=== PATIENT | male | born 1960 | race Caucasian/White ===

== ENCOUNTER 2017-12-08 15:03 | Observation (INO) | payer OTHER ==
[2017-12-08 15:10] LABS: Glucose,Whole Blood 137 mg/dL (75-99)
[2017-12-08] MEDS ORDERED: SODIUM CHLORIDE 0.9% 1,000 ML IV STA (15:15)
--- NOTE | 2017-12-08 15:19 | ED ---
General Adult HPI - General Chief complaint: Seizure Stated complaint: Seizure Time Seen by Provider: 12/08/17 15:06 Source: patient, EMS, RN notes reviewed Mode of arrival: EMS Limitations: no limitations - History of Present Illness Initial comments: Patient is a pleasant 57-year-old male presenting to the emergency department with friend following an unresponsive episode. Friend states patient had a seizure however no seizure activity was witnessed. Patient is described as starting to eat ice cream and his eyes rolled back of his head and fell back. No obvious injury. Patient denies any pain. No seizure activity witnessed. Patient feels fine at this point however admits he does not recall the episode. Patient did have a somewhat similar episode several years ago. Patient denies any recent illness. No pain or confusion. - Related Data Allergies Allergy/AdvReac Type Severity Reaction Status Date / Time No Known Allergies Allergy Verified 12/08/17 15:15 Review of Systems ROS Statement: Those systems with pertinent positive or pertinent negative responses have been documented in the HPI. ROS Other: All systems not noted in ROS Statement are negative. Constitutional: Denies: fever Eyes: Denies: eye pain ENT: Denies: ear pain Respiratory: Denies: cough, dyspnea Cardiovascular: Denies: chest pain Endocrine: Denies: fatigue Gastrointestinal: Denies: abdominal pain Genitourinary: Denies: dysuria Musculoskeletal: Denies: back pain Skin: Denies: rash Neurological: Denies: headache, weakness, confusion Past Medical History Past Medical History: Coronary Artery Disease (CAD), Heart Failure, COPD, Hyperlipidemia, Hypertension, Myocardial Infarction ([place]), Seizure Disorder History of Any Multi-Drug Resistant Organisms: None Reported Past Surgical History: Hernia Repair Past Psychological History: No Psychological Hx Reported Smoking Status: Former smoker Past Alcohol Use History: None Reported Past Drug Use History: None Reported General Exam Limitations: no limitations General appearance: alert, in no apparent distress Head exam: Present: atraumatic, normocephalic Eye exam: Present: normal appearance, PERRL, EOMI. Absent: nystagmus ENT exam: Present: normal oropharynx Neck exam: Present: normal inspection Respiratory exam: Present: normal lung sounds bilaterally Cardiovascular Exam: Present: regular rate, normal rhythm Expanded Peripheral pulses: 2+: Radial (R), Radial (L), Dorsalis Pedis (R), Dorsalis Pedis (L) GI/Abdominal exam: Present: soft. Absent: tenderness, guarding Extremities exam: Present: normal inspection. Absent: pedal edema, calf tenderness Neurological exam: Present: alert, oriented X3, CN II-XII intact. Absent: motor sensory deficit Expanded Neurological exam: Present: protecting the airway Patient oriented to: Present: person, place, time Speech: Present: fluid speech Cranial nerves: EOM's Intact: Normal Motor strength exam: RUE: 5, LUE: 5, RLE: 5, LLE: 5 Eye Response: (4) open spontaneously Motor Response: (6) obeys commands Verbal Response: (5) oriented Psychiatric exam: Present: normal affect, normal mood Skin exam: Present: normal color Course Vital Signs 12/08/17 12/08/17 12/08/17 15:10 16:08 16:52 Temperature 98.7 F 98.0 F Pulse Rate 107 H 97 102 H Respiratory 20 18 18 Rate Blood Pressure 126/60 110/63 140/63 O2 Sat by Pulse 90 L 94 L 98 Oximetry EKG Findings - EKG Comments: EKG Findings:: Sinus tachycardia 104. [place] 172. QRS 116. QT 36. QTc 507. Left axis. Left anterior fascicular block. No acute ST change. Medical Decision Making - Medical Decision Making Patient reevaluated and resting comfortably in bed. No complaints at this time. Friend who is present now does question if there was some generalized shaking activity. Patient and friend are updated on results and plan. Case was discussed in detail with Dr. Sepulveda, who will admit for hospital call. - Lab Data Result diagrams: 12/08/17 15:15 12/08/17 15:15 Lab Results 12/08/17 12/08/17 12/08/17 Range/Units 15:08 15:15 15:15 WBC 15.6 H (3.8-10.6) k/uL RBC 4.38 (4.30-5.90) m/uL Hgb 13.6 (13.0-17.5) gm/dL Hct 40.8 (39.0-53.0) % MCV 93.2 (80.0-100.0) fL MCH 31.1 (25.0-35.0) pg MCHC 33.4 (31.0-37.0) g/dL RDW 14.0 (11.5-15.5) % Plt Count 420 (150-450) k/uL Neutrophils % 61 % Lymphocytes % 28 % Monocytes % 6 % Eosinophils % 2 % Basophils % 1 % Neutrophils # 9.5 H (1.3-7.7) k/uL Lymphocytes # 4.4 (1.0-4.8) k/uL Monocytes # 0.9 (0-1.0) k/uL Eosinophils # 0.3 (0-0.7) k/uL Basophils # 0.1 (0-0.2) k/uL PT (9.0-12.0) sec INR (<1.2) APTT (22.0-30.0) sec Sodium (137-145) mmol/L Potassium (3.5-5.1) mmol/L Chloride (98-107) mmol/L Carbon Dioxide (22-30) mmol/L Anion Gap mmol/L BUN (9-20) mg/dL Creatinine (0.66-1.25) mg/dL Est GFR (CKD-EPI)AfAm (>60 ml/min/1.73 sqM) Est GFR (CKD-EPI)NonAf (>60 ml/min/1.73 sqM) Glucose (74-99) mg/dL POC Glucose (mg/dL) 137 H (75-99) mg/dL POC Glu [employer] Shira Bustillos Calcium (8.4-10.2) mg/dL Total Bilirubin (0.2-1.3) mg/dL AST (17-59) U/L ALT (21-72) U/L Alkaline Phosphatase (38-126) U/L Total Creatine Kinase 63 (55-170) U/L CK-MB (CK-2) 0.8 (0.0-2.4) ng/mL CK-MB (CK-2) Rel Index 1.3 Troponin I <0.012 (0.000-0.034) ng/mL Total Protein (6.3-8.2) g/dL Albumin (3.5-5.0) g/dL Serum Alcohol mg/dL 12/08/17 12/08/17 Range/Units 15:15 15:15 WBC (3.8-10.6) k/uL RBC (4.30-5.90) m/uL Hgb (13.0-17.5) gm/dL Hct (39.0-53.0) % MCV (80.0-100.0) fL MCH (25.0-35.0) pg MCHC (31.0-37.0) g/dL RDW (11.5-15.5) % Plt Count (150-450) k/uL Neutrophils % % Lymphocytes % % Monocytes % % Eosinophils % % Basophils % % Neutrophils # (1.3-7.7) k/uL Lymphocytes # (1.0-4.8) k/uL Monocytes # (0-1.0) k/uL Eosinophils # (0-0.7) k/uL Basophils # (0-0.2) k/uL PT 10.0 (9.0-12.0) sec INR 1.0 (<1.2) APTT 22.2 (22.0-30.0) sec Sodium 138 (137-145) mmol/L Potassium 3.1 L (3.5-5.1) mmol/L Chloride 98 (98-107) mmol/L Carbon Dioxide 26 (22-30) mmol/L Anion Gap 14 mmol/L BUN 15 (9-20) mg/dL Creatinine 0.70 (0.66-1.25) mg/dL Est GFR (CKD-EPI)AfAm >90 (>60 ml/min/1.73 sqM) Est GFR (CKD-EPI)NonAf >90 (>60 ml/min/1.73 sqM) Glucose 125 H (74-99) mg/dL POC Glucose (mg/dL) (75-99) mg/dL POC Glu Hand [employer] Meat ID Calcium 9.3 (8.4-10.2) mg/dL Total Bilirubin 0.3 (0.2-1.3) mg/dL AST 20 (17-59) U/L ALT 30 (21-72) U/L Alkaline Phosphatase 83 (38-126) U/L Total Creatine Kinase (55-170) U/L CK-MB (CK-2) (0.0-2.4) ng/mL CK-MB (CK-2) Rel Index Troponin I (0.000-0.034) ng/mL Total Protein 6.3 (6.3-8.2) g/dL Albumin 3.9 (3.5-5.0) g/dL Serum Alcohol <10 mg/dL - Radiology Data Radiology results: report reviewed (Computed tomography scan of the brain reveals no acute abdominal mild), image reviewed (Chest x-ray shows no acute process) Disposition Clinical Impression: Unresponsive episode Disposition: ADMITTED IP TO THIS HOSP Is patient prescribed a controlled substance at d/c from ED?: No Referrals: Nonstaff,Physician [Primary Care Provider] - 1-2 days Decision Time: 17:03
[2017-12-08 15:36] LABS: Basophils # (A) 0.1 k/uL (0-0.2); Basophils % (A) 1 %; Eosinophils # (A) 0.3 k/uL (0-0.7); Eosinophils % (A) 2 %; HCT 40.8 % (39.0-53.0); HGB 13.6 gm/dL (13.0-17.5); Lymphocytes # (A) 4.4 k/uL (1.0-4.8); Lymphocytes % (A) 28 %; MCH 31.1 pg (25.0-35.0); MCHC 33.4 g/dL (31.0-37.0); MCV 93.2 fL (80.0-100.0); Mean Platelet Volume 6.8; Monocytes # (A) 0.9 k/uL (0-1.0); Monocytes % (A) 6 %; Neutrophils # (A) 9.5 k/uL (1.3-7.7); Neutrophils % (A) 61 %; Platelet Count 420 k/uL (150-450); RBC 4.38 m/uL (4.30-5.90); WBC 15.6 k/uL (3.8-10.6)
[2017-12-08 15:42] LABS: ALT 30 U/L (21-72); AST 20 U/L (17-59); Albumin 3.9 g/dL (3.5-5.0); Alcohol <10 mg/dL; Alkaline Phosphatase 83 U/L (38-126); Anion Gap 14 mmol/L; Blood Urea Nitrogen 15 mg/dL (9-20); Calcium 9.3 mg/dL (8.4-10.2); Carbon Dioxide 26 mmol/L (22-30); Chloride 98 mmol/L (98-107); Glucose 125 mg/dL (74-99); Partial Thromboplastin Time 22.2 sec (22.0-30.0); Potassium 3.1 mmol/L (3.5-5.1); Sodium 138 mmol/L (137-145); Total Bilirubin 0.3 mg/dL (0.2-1.3); Total Protein 6.3 g/dL (6.3-8.2)
[2017-12-08 15:59] LABS: Creatine Kinase 63 U/L (55-170)
[2017-12-08 16:09] VITALS: RESP 18
[2017-12-08 16:11] LABS: Creatine Kinase MB 0.8 ng/mL (0.0-2.4); Troponin I <0.012 ng/mL (0.000-0.034)
--- NOTE | 2017-12-08 16:26 | CT ---
EXAMINATION TYPE: CT brain wo con DATE OF EXAM: 12/08/2017 COMPARISON: HISTORY: Syncope CT DLP: 1079 mGycm Automated exposure control for dose reduction was used. FINDINGS: There are cerebral vascular calcifications. No hemorrhage or hydrocephalus. No mass effect. Brain den sity is normal. Calvarium is intact. Paranasal sinuses and mastoid air cells are normal. The orbits s how a symmetric appearance. IMPRESSION: NO ACUTE ABNORMALITY.
--- NOTE | 2017-12-08 16:29 | XR ---
EXAMINATION TYPE: XR chest 2V DATE OF EXAM: 12/08/2017 COMPARISON: NONE HISTORY: Syncope and seizure TECHNIQUE: Frontal and lateral views of the chest are obtained. FINDINGS: There is no focal air space opacity, pleural effusion, or pneumothorax seen. The cardiac silhouette size is within normal limits. The osseous structures are intact. There are overlying car diac leads. IMPRESSION: No acute cardiopulmonary process.
[2017-12-08] MEDS ORDERED: POTASSIUM CHLORIDE ER 20 MEQ TAB.ER PO STA (16:44)
[2017-12-08] MEDS ORDERED: NALOXONE 0.4 MG/ML 1 ML VIAL IV PRN (17:03)
[2017-12-08 17:12] LABS: Appearance,Urine Clear (Clear); Bilirubin,Urine Negative (Negative); Blood,Urine Negative (Negative); Color,Urine Yellow; Glucose,Urine (UA) Negative (Negative); Ketones,Urine Negative (Negative); Leukocyte Esterase,Urine Negative (Negative); Nitrite,Urine Negative (Negative); PH, Urine 6.5 (5.0-8.0); Protein,Urine Trace (Negative); Specific Gravity,Urine 1.016 (1.001-1.035); Urobilinogen,Urine <2.0 mg/dL (<2.0)
[2017-12-08 17:23] LABS: Amphetamine Screen,Urine Not Detected (NotDetected); Barbiturate Screen,Urine Not Detected (NotDetected); Benzodiazepines Screen,Urine Not Detected (NotDetected); Cocaine Screen,Urine Not Detected (NotDetected); Methadone Screen, Urine Not Detected (NotDetected); Opiate Screen,Urine Not Detected (NotDetected); Oxycodone Screen, Urine Not Detected (NotDetected); Phencyclidine Screen,Urine Not Detected (NotDetected); Tricyclic Antidepressant,Urine Not Detected (NotDetected); Urn Cannabinoid Scrn Not Detected (NotDetected)
[2017-12-08] MEDS ORDERED: ACETAMINOPHEN TAB 325 MG TAB PO PRN (17:29)
--- NOTE | 2017-12-08 17:39 | P.HPIM ---
History of Present Illness H&P Date: 12/08/17 Chief Complaint: Syncope 57-year-old male presented to the emergency department following an unresponsive episode. Patient doesn't recall the event. He was buying a Sundae at an ice cream place when he started feeling dizzy and lightheaded and then all of a sudden his eyes rolled back and he fell backwards. He didn't hit his head on the bench. He was not sure how long he passed out for. He felt clammy and diaphoretic. He denied having any nausea or vomiting. No blurry or double vision. No focal weakness or numbness. No slurred speech. Patient has history of COPD and he continues to smoke occasionally and he stated that the heat and humidity have been taking a toll on him. There was questionable shaking during the event but his stated that it didn't look like his typical seizure. Review of Systems 12 point review of system performed, negative except HPI Past Medical History Past Medical History: Coronary Artery Disease (CAD), Heart Failure, COPD, Hyperlipidemia, Hypertension, Myocardial Infarction (PR), Seizure Disorder History of Any Multi-Drug Resistant Organisms: None Reported Past Surgical History: Hernia Repair Past Psychological History: No Psychological Hx Reported Smoking Status: Former smoker Past Alcohol Use History: None Reported Past Drug Use History: None Reported Medications and Allergies Home Medications Medication Instructions Recorded Confirmed Type Aspirin [Adult Low Dose Aspirin EC] 81 mg PO DAILY 12/08/17 12/08/17 History Atorvastatin [Lipitor] 20 mg PO HS 12/08/17 12/08/17 History Cholecalciferol [Vitamin D3] 1,000 unit PO DAILY 12/08/17 12/08/17 History Hydrochlorothiazide [Hydrodiuril] 25 mg PO DAILY 12/08/17 12/08/17 History Lisinopril 40 mg PO DAILY 12/08/17 12/08/17 History Potassium Chloride [Klor-Con 10] 10 meq PO DAILY 12/08/17 12/08/17 History Vit C/E/Zn/Coppr/Lutein/Zeaxan 1 cap PO DAILY 12/08/17 12/08/17 History [Preservision Areds 2 Softgel] levETIRAcetam [Keppra] 500 mg PO Q12HR 12/08/17 12/08/17 History Allergies Allergy/AdvReac Type Severity Reaction Status Date / Time No Known Allergies Allergy Verified 12/08/17 17:20 Physical Exam Vitals: Vital Signs Temp Pulse Resp BP Pulse Ox 12/08/17 16:52 98.0 F 102 H 18 140/63 98 12/08/17 16:08 97 18 110/63 94 L 12/08/17 15:10 98.7 F 107 H 20 126/60 90 L Intake and Output 12/08/17 12/08/17 12/08/17 06:59 14:59 22:59 Other: Weight 126.552 kg Constitutional: No acute distress, conversant, pleasant Eyes:Anicteric sclerae, moist conjunctiva, no lid-lag, PERRLA, ENMT: Oropharynx clear, no erythema, exudates Neck: Supple, FROM, no masses, or JVD, No carotid bruits, No thyromegaly Lungs: Clear to auscultation, Clear to percussion, Normal respiratory effort, no accessory muscle use Cardiovascular: Tachycardic, regular, No murmurs, gallops, or rubs, No peripheral edema Abdominal: Soft, Nontender, no guarding, rebound or rigidity, Normoactive bowel sounds, No hepatomegaly, No splenomegaly, No palpable mass Skin: Normal temperature, tone, texture, turgor, no induration, No subcutaneous nodules, No rash, lesions, No ulcers Extremities: No digital cyanosis, No clubbing, Pedal pulses intact and symmetrical, Radial pulses intact and symmetrical, No calf tenderness Psychiatric: Alert and oriented to person, place and time, appropriate affect, intact judgement Neuro: Muscles Strength 5/5 in all 4 extremities, Sensation to light touch grossly present throughout, Cranial nerves II-XII grossly intact, no focal sensory deficits Results CBC & Chem 7: 12/08/17 15:15 12/08/17 15:15 Labs: Abnormal Lab Results - Last 24 Hours (Table) 12/08/17 12/08/17 12/08/17 Range/Units 15:08 15:15 15:15 WBC 15.6 H (3.8-10.6) k/uL Neutrophils # 9.5 H (1.3-7.7) k/uL Potassium 3.1 L (3.5-5.1) mmol/L Glucose 125 H (74-99) mg/dL POC Glucose (mg/dL) 137 H (75-99) mg/dL Urine Protein (Negative) 12/08/17 Range/Units 16:11 WBC (3.8-10.6) k/uL Neutrophils # (1.3-7.7) k/uL Potassium (3.5-5.1) mmol/L Glucose (74-99) mg/dL POC Glucose (mg/dL) (75-99) mg/dL Urine Protein Trace H (Negative) Assessment and Plan Plan: Syncope/Hx of coronary Artery Disease (CAD) s/p 3 MIs/Hx of seizure Disorder: Likely vasovagal, rule out ACS versus seizure Admit to observation Telemetry Cycle troponins Cardiology and neurology consultations 2-D echo COPD, Hyperlipidemia, Hypertension: All stable Resume home meds
[2017-12-08 20:24] VITALS: BMI 43.7
--- NOTE | 2017-12-08 21:07 | P.CNNES ---
History of Present Illness Consult date: 12/08/17 Reason for Consult: Patient admitted with syncope vs. seizure event today. History of Present Illness: This patient is a 57-year-old right-handed white male who was in his usual state of health earlier today. The patient was at a campground and was with his and was taking a break to have a ice cream Saturday. Apparently she had help get his ice cream together and was coming back to the table where they were sitting and the patient had what she describes as a possible seizure. Apparently he fell backwards and struck the back of his head. He was having some shaking when he was on the ground. The had witnessed the entire event and was concerned that he had a seizure. Patient was feeling dizzy and lightheaded just prior to this event. The noted that his eyes rolled back and he fell backwards and was unresponsive for several minutes. He did feel clammy and apparently noted that he was sweating somewhat profusely. The patient does have a history of underlying seizure disorder for the past 2-1/2 years. His first seizure was in June 2015. He has been on anticonvulsant therapy and takes Keppra 500 mg twice a day. He is not aware of when his last Keppra blood level was checked. The patient states that he was feeling warm just prior to this syncopal episode. Once again it is not clear if this was a syncope versus seizure event. He denied any loss of bowel or bladder during the event. It was extensively warm outside when this episode occurred today. He was taught in by EMS to the emergency room for further evaluation. His states that she was concerned he may have had a seizure as she is seen this previously. The patient was brought into the emergency room where he was further evaluated at [facility] ER. He was seen in the ER by Dr. Coyne. He was sent for a computed tomography scan of the brain today which was reported to show no acute abnormality. Patient was subsequent admitted to Hospital. Patient is unaware of his last Keppra blood level. He follows with her neurologist as well as a primary care physician at in [place]. We will obtain a Keppra blood level as well as a routine EEG tomorrow for further evaluation. His overall prognosis remains guarded. Patient is aware of the [place] driving law and is aware he cannot drive in the state of [place] for a period of 6 months following his last syncope and/ or seizure event. He is now been advised he cannot drive now for 6 months. Patient is well aware of this from his previous seizure that occurred in 2016. Patient is now admitted and neurology has been consulted for further evaluation and recommendations. Review of Systems Constitutional: Denies chills, Denies fever Eyes: denies blurred vision, denies pain Ears, nose, mouth and throat: Denies headache, Denies sore throat Cardiovascular: Denies chest pain, Denies shortness of breath Respiratory: Denies cough Gastrointestinal: Denies abdominal pain, Denies diarrhea, Denies nausea, Denies vomiting Musculoskeletal: Denies myalgias Integumentary: Denies pruritus, Denies rash Neurological: Reports change in mentation, Reports confusion, Reports convulsions, Reports seizures, Reports syncope, Denies numbness, Denies weakness Psychiatric: Denies anxiety, Denies depression Endocrine: Denies fatigue, Denies weight change Past Medical History Past Medical History: Coronary Artery Disease (CAD), Heart Failure, COPD, Hyperlipidemia, Hypertension, Myocardial Infarction ([place]), Seizure Disorder History of Any Multi-Drug Resistant Organisms: None Reported Past Surgical History: Hernia Repair Past Psychological History: No Psychological Hx Reported Smoking Status: Former smoker Past Alcohol Use History: None Reported Past Drug Use History: None Reported - Past Family History Mother Family Medical History: Congestive Heart Failure (CHF), Diabetes Mellitus, Renal Disease Additional Family Medical History / Comment(s): at age 56 Father Family Medical History: Myocardial Infarction (MA) Additional Family Medical History / Comment(s): at age 46 massive MA Medications and Allergies Home Medications Medication Instructions Recorded Confirmed Type Aspirin [Adult Low Dose Aspirin EC] 81 mg PO DAILY 12/08/17 12/08/17 History Atorvastatin [Lipitor] 20 mg PO HS 12/08/17 12/08/17 History Cholecalciferol [Vitamin D3] 1,000 unit PO DAILY 12/08/17 12/08/17 History Hydrochlorothiazide [Hydrodiuril] 25 mg PO DAILY 12/08/17 12/08/17 History Lisinopril 40 mg PO DAILY 12/08/17 12/08/17 History Potassium Chloride [Klor-Con 10] 10 meq PO DAILY 12/08/17 12/08/17 History Vit C/E/Zn/Coppr/Lutein/Zeaxan 1 cap PO DAILY 12/08/17 12/08/17 History [Preservision Areds 2 Softgel] levETIRAcetam [Keppra] 500 mg PO Q12HR 12/08/17 12/08/17 History Allergies Allergy/AdvReac Type Severity Reaction Status Date / Time No Known Allergies Allergy Verified 12/08/17 17:20 Physical Examination - Vital Signs Vital Signs: Vital Signs Temp Pulse Resp BP Pulse Ox 12/08/17 19:33 98.0 F 98 18 134/78 94 L 12/08/17 16:52 98.0 F 102 H 18 140/63 98 12/08/17 16:08 97 18 110/63 94 L 12/08/17 15:10 98.7 F 107 H 20 126/60 90 L Intake and Output 12/08/17 12/08/17 12/08/17 06:59 14:59 22:59 Other: Weight 126.552 kg - Constitutional General appearance: average body habitus, cooperative - EENT EENT: PERRL, mucous membranes moist - Respiratory Respiratory: lungs clear, normal breath sounds - Cardiovascular Cardiovascular: regular rate, normal S1, normal S2 Extremities: no peripheral edema bilaterally - Gastrointestinal Gastrointestinal: normoactive bowel sounds - Integumentary Integumentary: normal - Neurologic Cranial nerve examination: PERRL, EOMI, V1/V2/V3 grossly intact, face symmetric , tongue midline, intact gag reflex, intact corneal reflex, normal palatal elevation Speech examination: intact Sensorimotor examination: intact Motor examination - right side: 4/5: biceps, triceps, wrist flexion, wrist extension, incident response specialist, hip flexors, knee extensors, dorsiflexion, toe extension (EHL) , plantarflexion Motor examination - left side: 4/5: biceps, triceps, wrist flexion, wrist extension, incident response specialist, hip flexors, knee extensors, dorsiflexion, toe extension (EHL) , plantarflexion Detailed sensory examination: intact Reflex and gait examination: intact Reflexes: 1+: ankle, bicep, knee, tricep - Musculoskeletal Musculoskeletal: no pain - Psychiatric Psychiatric: mood/affect appropriate, cooperative Results - Laboratory Findings CBC and BMP: 12/08/17 15:15 12/08/17 15:15 Abnormal Lab Findings: Abnormal Labs 07/12/08/17 12/08/17 15:08 15:15 15:15 WBC 15.6 H Neutrophils # 9.5 H Potassium 3.1 L Glucose 125 H POC Glucose (mg/dL) 137 H Urine Protein 12/08/17 16:11 WBC Neutrophils # Potassium Glucose POC Glucose (mg/dL) Urine Protein Trace H Assessment and Plan (1) Seizure disorder Current Visit: Yes Status: Acute Code(s): G40.909 - EPILEPSY, UNSP, NOT INTRACTABLE, WITHOUT STATUS EPILEPTICUS SNOMED Code(s): 916617948 (2) Vasovagal syncope Current Visit: Yes Status: Acute Code(s): R55 - SYNCOPE AND COLLAPSE SNOMED Code(s): 268967567 (3) Anxiety disorder Current Visit: Yes Status: Acute Code(s): F41.9 - ANXIETY DISORDER, UNSPECIFIED SNOMED Code(s): 481761995 (4) Unresponsive episode Current Visit: Yes Status: Acute Code(s): R41.89 - OTH SYMPTOMS AND SIGNS W COGNITIVE FUNCTIONS AND AWARENESS SNOMED Code(s): 230523401 Plan: This patient is a 57-year-old male who was at a trailer park today and was having some ice cream with his when he apparently had a passing out spell. It is unclear whether this was a syncopal episode and or a seizure. Patient has history of underlying seizure disorder for which she takes Keppra 500 mg twice a day. According to the he has been seizure-free on this medication over the last year. He does follow with a neurologist at in [place]. He was brought into the emergency room and was evaluated by Dr. Coyne. Computed tomography scan of the brain was reported negative for any acute changes. He was admitted to Hospital. Neurological examination at this time is nonfocal. We will obtain a Keppra blood level for this patient tomorrow morning and adjust his dose if necessary. We will also obtain a routine EEG for further evaluation. He was advised of the [employer] driving law with states he cannot drive for. To 6 months following his last syncopal episode and/or seizure. Patient is aware of this from his previous seizure that occurred in 2016. We will continue with seizure precautions and close monitoring for this patient during this admission. His overall prognosis at this time remains very guarded. Time with Patient: Greater than 30
[2017-12-08] MEDS: levETIRAcetam 500 MG TAB PO SCH (21:44)
[2017-12-08] MEDS: ATORVASTATIN 20 MG TAB PO SCH (21:44)
[2017-12-08] MEDS: SODIUM CHLORIDE 0.9% 1,000 ML IV SCH (21:45)
[2017-12-09 03:21] LABS: Basophils % (A) 0 %; Eosinophils # (A) 0.2 k/uL (0-0.7); Eosinophils % (A) 1 %; HCT 38.2 % (39.0-53.0); HGB 12.9 gm/dL (13.0-17.5); Lymphocytes # (A) 2.1 k/uL (1.0-4.8); Lymphocytes % (A) 15 %; MCH 30.8 pg (25.0-35.0); MCHC 33.7 g/dL (31.0-37.0); MCV 91.6 fL (80.0-100.0); Monocytes # (A) 0.7 k/uL (0-1.0); Monocytes % (A) 5 %; Neutrophils % (A) 78 %; Platelet Count 317 k/uL (150-450); RBC 4.17 m/uL (4.30-5.90); RDW 13.8 % (11.5-15.5); WBC 14.1 k/uL (3.8-10.6)
[2017-12-09 03:48] LABS: Anion Gap 8 mmol/L; Blood Urea Nitrogen 15 mg/dL (9-20); Calcium 9.2 mg/dL (8.4-10.2); Carbon Dioxide 33 mmol/L (22-30); Chloride 97 mmol/L (98-107); Glucose 98 mg/dL (74-99); Phosphorus 3.2 mg/dL (2.5-4.5); Potassium 3.4 mmol/L (3.5-5.1); Sodium 138 mmol/L (137-145)
[2017-12-09] MEDS ORDERED: POTASSIUM CHLORIDE ER 20 MEQ TAB.ER PO STA (07:22)
[2017-12-09] MEDS: LISINOPRIL 20 MG TAB PO SCH (08:34)
[2017-12-09] MEDS: ASPIRIN 81 MG PO SCH (08:34)
[2017-12-09] MEDS: CHOLECALCIFEROL 1,000 UNIT TAB PO SCH (08:34)
[2017-12-09] MEDS: levETIRAcetam 500 MG TAB PO SCH ×2 (08:34→21:22)
[2017-12-09] MEDS: POTASSIUM CHLORIDE ER 10 MEQ TAB.ER.PRT PO SCH (08:34)
--- NOTE | 2017-12-09 10:50 | P.PN ---
Subjective Progress Note Date: 12/09/17 Principal diagnosis: Syncope Uncomfortable because he hasn't slept last night. No further dizziness or syncope. Objective - Vital Signs Vital signs: Vital Signs Temp 97.7 F 12/09/17 08:00 Pulse 85 12/09/17 08:00 Resp 18 12/09/17 04:00 BP 113/74 12/09/17 08:00 Pulse Ox 95 12/09/17 09:24 Intake & Output 12/08/17 12/09/17 12/09/17 18:59 06:59 18:59 Intake Total 900 360 Balance 900 360 Weight 126.552 kg 105.9 kg Intake: IV 900 Sodium Chloride 0.9% 1, 900 000 ml @ 100 mls/hr IV . Q10H [facility] [place] Rx#:[id number] Oral 360 Other: Voiding Method Toilet - Exam Constitutional: No acute distress, conversant, pleasant Eyes:Anicteric sclerae, moist conjunctiva, no lid-lag, PERRLA, ENMT: Oropharynx clear, no erythema, exudates Neck: Supple, FROM, no masses, or JVD, No carotid bruits, No thyromegaly Lungs: Clear to auscultation, Clear to percussion, Normal respiratory effort, no accessory muscle use Cardiovascular: Heart regular in rate and rhythm, No murmurs, gallops, or rubs, No peripheral edema Abdominal: Soft, Nontender, no guarding, rebound or rigidity, Normoactive bowel sounds, No hepatomegaly, No splenomegaly, No palpable mass Skin: Normal temperature, tone, texture, turgor, no induration, No subcutaneous nodules, No rash, lesions, No ulcers Extremities: No digital cyanosis, No clubbing, Pedal pulses intact and symmetrical, Radial pulses intact and symmetrical, No calf tenderness Psychiatric: Alert and oriented to person, place and time, appropriate affect, intact judgement Neuro: Muscles Strength 5/5 in all 4 extremities, Sensation to light touch grossly present throughout, Cranial nerves II-XII grossly intact, no focal sensory deficits - Labs CBC & Chem 7: 12/09/17 03:14 12/09/17 03:14 Labs: Abnormal Lab Results - Last 24 Hours (Table) 12/08/17 12/08/17 12/08/17 Range/Units 15:08 15:15 15:15 WBC 15.6 H (3.8-10.6) k/uL RBC (4.30-5.90) m/uL Hgb (13.0-17.5) gm/dL Hct (39.0-53.0) % Neutrophils # 9.5 H (1.3-7.7) k/uL Potassium 3.1 L (3.5-5.1) mmol/L Chloride (98-107) mmol/L Carbon Dioxide (22-30) mmol/L Glucose 125 H (74-99) mg/dL POC Glucose (mg/dL) 137 H (75-99) mg/dL Urine Protein (Negative) 12/08/17 12/09/17 12/09/17 Range/Units 16:11 03:14 03:14 WBC 14.1 H (3.8-10.6) k/uL RBC 4.17 L (4.30-5.90) m/uL Hgb 12.9 L (13.0-17.5) gm/dL Hct 38.2 L (39.0-53.0) % Neutrophils # 11.0 H (1.3-7.7) k/uL Potassium 3.4 L (3.5-5.1) mmol/L Chloride 97 L (98-107) mmol/L Carbon Dioxide 33 H (22-30) mmol/L Glucose (74-99) mg/dL POC Glucose (mg/dL) (75-99) mg/dL Urine Protein Trace H (Negative) Assessment and Plan Plan: Syncope/Hx of coronary Artery Disease (CAD) s/p 3 MIs/Hx of seizure Disorder: Likely vasovagal, rule out ACS versus seizure Continue on telemetry Troponins negative Cardiology and neurology consultations Keppra level and EEG 2-D echo COPD, Hyperlipidemia, Hypertension: All stable Resume home meds
--- NOTE | 2017-12-09 13:13 | ECHOF ---
Referral Reason:syncope MEASUREMENTS -------- HEIGHT: 170.2 cm WEIGHT: 105.7 kg BP: 134/78 IVSd: 0.9 cm (0.6 - 1.1) LVIDd: 4.2 cm (3.9 - 5.3) LVPWd: 1.0 cm (0.6 - 1.1) IVSs: 1.2 cm LVIDs: 2.0 cm LVPWs: 1.1 cm RVIDd: 2.2 cm (< 3.3) LAESV Index (A-L): 29.16 ml/m Ao Diam: 3.5 cm (2.0 - 3.7) LA Diam: 3.9 cm (2.7 - 3.8) AV Cusp: 2.1 cm (1.5 - 2.6) MV E Ajit: 0.98 m/s MV DecT: 213 ms MV A Ajit: 0.83 m/s MV E/A Ratio: 1.18 RAP: 5.00 mmHg RVSP: 16.30 mmHg FINDINGS -------- Sinus rhythm. This was a technically adequate study. The left ventricular size is normal. Left ventricular wall thickness is normal. Overall left vent ricular systolic function is low-normal with, an EF between 50 - 55 %. The right ventricle is normal in size and function. LA is midly dilated 29-33ml/m2. The right atrium is normal in size. There is mild aortic valve sclerosis. There is no evidence of aortic regurgitation. There is no e vidence of aortic stenosis. The mitral valve leaflets are mildly thickened. There is trace to mild mitral regurgitation. Trace tricuspid regurgitation present. Right ventricular systolic pressure is normal at < 35 mmHg. There is no evidence of pulmonary hypertension. The pulmonic valve was not well visualized. The aortic root size is normal. Normal inferior vena cava with normal inspiratory collapse consistent with estimated right atrial pre ssure of 5 mmHg. There is no pericardial effusion. CONCLUSIONS -------- 1. Sinus rhythm. 2. This was a technically adequate study. 3. The left ventricular size is normal. 4. Left ventricular wall thickness is normal. 5. Overall left ventricular systolic function is low-normal with, an EF between 50 - 55 %. 6. LA is midly dilated 29-33ml/m2. 7. There is mild aortic valve sclerosis. 8. The mitral valve leaflets are mildly thickened. 9. There is trace to mild mitral regurgitation. 10. Trace tricuspid regurgitation present. 11. Right ventricular systolic pressure is normal at < 35 mmHg. 12. There is no evidence of pulmonary hypertension. 13. The pulmonic valve was not well visualized. 14. The aortic root size is normal. 15. There is no pericardial effusion. AMPHIBIAN CREWMEMBER: Terell Abbott RDCS
--- NOTE | 2017-12-09 13:51 | P.CRDCN ---
History of Present Illness Consult date: 12/09/17 Requesting physician: Vickie Cruz Reason for Consult (text): syncope vs seizure Chief complaint: syncope, possible seizure History of present illness: This a pleasant 57-year-old gentleman who lives in [facility] and follows with Dr. Levin out of [facility], previously followed with Dr. Posey. He has a history of COPD, former smoker, seizure disorder, hyperlipidemia , hypertension, significant family history for premature CAD history father at 46 from an CA and his mom was 56, was told previously based on cardiac testing that he had previous MIs 2 or 3. Denies ever having cardiac catheterization. He is currently staying at [facility] while his house is being remodeled. Apparently yesterday he sat down to eat ice cream with his and lost consciousness. Apparently the patient did have some shaking of his arms and legs but apparently was not his typical presentation of his seizures. In speaking with the patient, he feels that this was a seizure as he's been under a lot of stress in his first seizure was stress related. On admission CT of the brain was negative, chest x-ray showed no acute process and EKG showed no significant ST-T wave abnormalities. Laboratory values showed a white blood cell count of 15,600, potassium of 3.1, BUN 15 and creatinine 0.7 and troponins have been less than 0.0123. This morning his white count is 14,100 and potassium is 3.4. He denies any dizziness , lightheadedness, palpitations, chest discomfort, edema or further syncopal episodes. He does complain of shortness of breath especially and heat and humidity due to his COPD. Past Medical History Past Medical History: Coronary Artery Disease (CAD), Heart Failure, COPD, Hyperlipidemia, Hypertension, Myocardial Infarction (CA), Seizure Disorder Last Myocardial Infarction Date:: 2007 History of Any Multi-Drug Resistant Organisms: None Reported Past Surgical History: Hernia Repair Past Anesthesia/Blood Transfusion Reactions: No Reported Reaction Past Psychological History: No Psychological Hx Reported Smoking Status: Former smoker Past Alcohol Use History: None Reported Past Drug Use History: None Reported - Past Family History Mother Family Medical History: Congestive Heart Failure (CHF), Diabetes Mellitus, Renal Disease Additional Family Medical History / Comment(s): at age 56 Father Family Medical History: Myocardial Infarction (CA) Additional Family Medical History / Comment(s): at age 46 massive CA Medications and Allergies Home Medications Medication Instructions Recorded Confirmed Type Aspirin [Adult Low Dose Aspirin EC] 81 mg PO DAILY 12/08/17 12/08/17 History Atorvastatin [Lipitor] 20 mg PO HS 12/08/17 12/08/17 History Cholecalciferol [Vitamin D3] 1,000 unit PO DAILY 12/08/17 12/08/17 History Hydrochlorothiazide [Hydrodiuril] 25 mg PO DAILY 12/08/17 12/08/17 History Lisinopril 40 mg PO DAILY 12/08/17 12/08/17 History Potassium Chloride [Klor-Con 10] 10 meq PO DAILY 12/08/17 12/08/17 History Vit C/E/Zn/Coppr/Lutein/Zeaxan 1 cap PO DAILY 12/08/17 12/08/17 History [Preservision Areds 2 Softgel] levETIRAcetam [Keppra] 500 mg PO Q12HR 12/08/17 12/08/17 History Allergies Allergy/AdvReac Type Severity Reaction Status Date / Time No Known Allergies Allergy Verified 12/08/17 17:20 Physical Exam Vitals: Vital Signs Temp Pulse Pulse Resp BP BP Pulse Ox 12/09/17 09:24 95 12/09/17 08:00 97.7 F 85 113/74 94 L 12/09/17 04:00 98.1 F 80 18 134/78 97 12/09/17 00:00 98.3 F 88 18 119/73 97 12/08/17 20:00 85 18 12/08/17 19:33 98.0 F 98 18 134/78 94 L 12/08/17 17:44 97.9 F 85 18 122/74 98 12/08/17 16:52 98.0 F 102 H 18 140/63 98 12/08/17 16:08 97 18 110/63 94 L 12/08/17 15:10 98.7 F 107 H 20 126/60 90 L Intake and Output 12/08/17 12/09/17 12/09/17 22:59 06:59 14:59 Intake Total 900 360 Balance 900 360 Intake: IV 900 Sodium Chloride 0.9% 1, 900 000 ml @ 100 mls/hr IV . Q10H [facility] Rx#:[id number] Oral 360 Other: Voiding Method Toilet Weight 126.552 kg 105.9 kg PHYSICAL EXAMINATION: HEENT: Head is atraumatic, normocephalic. Pupils equal, round. Neck is supple. There is no elevated jugular venous pressure. No bruit noted. HEART EXAMINATION: Heart sounds regular, S1 and S2 normal. No murmur or gallop heard. CHEST EXAMINATION: Lungs reveal diminished air entry bilaterally. No chest wall tenderness is noted on palpation or with deep breathing. ABDOMEN: Soft, obese, nontender. Bowel sounds are heard. No organomegaly noted. EXTREMITIES: 2+ peripheral pulses with no evidence of peripheral edema and no calf tenderness noted. NEUROLOGIC patient is awake, alert and oriented x3. . Results 12/09/17 03:14 12/09/17 03:14 Cardiac Enzymes 12/08/17 12/08/17 12/08/17 Range/Units 15:15 15:15 20:50 AST 20 (17-59) U/L CK-MB (CK-2) 0.8 (0.0-2.4) ng/mL Troponin I <0.012 <0.012 (0.000-0.034) ng/mL 12/09/17 Range/Units 03:14 AST (17-59) U/L CK-MB (CK-2) (0.0-2.4) ng/mL Troponin I <0.012 (0.000-0.034) ng/mL Coagulation 12/08/17 Range/Units 15:15 PT 10.0 (9.0-12.0) sec APTT 22.2 (22.0-30.0) sec CBC 12/08/17 12/09/17 Range/Units 15:15 03:14 WBC 15.6 H 14.1 H (3.8-10.6) k/uL RBC 4.38 4.17 L (4.30-5.90) m/uL Hgb 13.6 12.9 L (13.0-17.5) gm/dL Hct 40.8 38.2 L (39.0-53.0) % Plt Count 420 317 (150-450) k/uL Comprehensive Metabolic Panel 12/08/17 12/09/17 Range/Units 15:15 03:14 Sodium 138 138 (137-145) mmol/L Potassium 3.1 L 3.4 L (3.5-5.1) mmol/L Chloride 98 97 L (98-107) mmol/L Carbon Dioxide 26 33 H (22-30) mmol/L BUN 15 15 (9-20) mg/dL Creatinine 0.70 0.70 (0.66-1.25) mg/dL Glucose 125 H 98 (74-99) mg/dL Calcium 9.3 9.2 (8.4-10.2) mg/dL AST 20 (17-59) U/L ALT 30 (21-72) U/L Alkaline Phosphatase 83 (38-126) U/L Total Protein 6.3 (6.3-8.2) g/dL Albumin 3.9 (3.5-5.0) g/dL Current Medications Generic Name Dose Route Start Last Admin Trade Name Freq PRN Reason Stop Dose Admin Acetaminophen 650 mg 12/08/17 17:29 Tylenol Tab PO Q6HR PRN Mild Pain or Fever > 100.5 Aspirin 81 mg 12/09/17 09:00 12/09/17 08:34 Aspirin PO 81 mg DAILY JANET Administration Atorvastatin Calcium 20 mg 12/08/17 21:00 12/08/17 21:44 Lipitor PO 20 mg HS JANET Administration Cholecalciferol 1,000 unit 12/09/17 09:00 12/09/17 08:34 Vitamin D3 PO 1,000 unit DAILY JANET Administration Sodium Chloride 1,000 mls @ 100 mls/hr 12/08/17 17:15 12/08/17 21:45 Saline 0.9% IV 100 mls/hr .Q10H JANET Administration Levetiracetam 500 mg 12/08/17 21:00 12/09/17 08:34 Keppra PO 500 mg Q12HR JANET Administration Lisinopril 40 mg 12/09/17 09:00 12/09/17 08:34 Zestril PO 40 mg DAILY JANET Administration Naloxone HCl 0.2 mg 12/08/17 17:03 Narcan IV Q2M PRN Opioid Reversal Potassium Chloride 10 meq 12/09/17 09:00 12/09/17 08:34 K-Dur 10 PO 10 meq DAILY JANET Administration Intake and Output 12/08/17 12/09/17 12/09/17 22:59 06:59 14:59 Intake Total 900 360 Balance 900 360 Intake: IV 900 Sodium Chloride 0.9% 1, 900 000 ml @ 100 mls/hr IV . Q10H [facility] Rx#:[id number] Oral 360 Other: Voiding Method Toilet Weight 126.552 kg 105.9 kg 12/09/17 03:14 12/09/17 03:14 Assessment and Plan Assessment: #1 syncope, likely vasovagal however patient does have a history of seizures as well as history of possible MIs in the past #2 hypertension #3 hyperlipidemia #4 COPD #5 seizure disorder Plan: From cardiology perspective, we'll review 2-D echo with Doppler. Replace potassium. We will observe patient for arrhythmias. Further recommendations to follow. LEGAL RECORDS MANAGER note has been reviewed, I agree with a documented findings and plan of care. Patient was seen and examined.
[2017-12-09] MEDS: SODIUM CHLORIDE 0.9% 1,000 ML IV SCH (21:21)
[2017-12-09] MEDS: ATORVASTATIN 20 MG TAB PO SCH (21:22)
--- NOTE | 2017-12-09 21:43 | EEG ---
ELECTROENCEPHALOGRAM REPORT DATE OF EE12/09/2017. REFERRING PHYSICIAN: Dr. Sepulveda. CONSULTING/INTERPRETING PHYSICIAN: Dr. Rashel Pop MD. ELECTROENCEPHALOGRAPHIC EXAMINATION: INDICATION FOR EXAMINATION: This patient is a 57-year-old male being evaluated for syncope versus seizure. Patient with episode of unresponsiveness and recent fall. AGE: [age]. EEG FINDINGS: A routine 21 channel awake digital EEG recording was accomplished utilizing the 10-20 international system with bipolar and referential montages. The background activity in the most alert resting state consists of a low to medium amplitude, fairly well- developed well sustained 7-8 Hz activity over the posterior head regions. This posterior rhythm attenuates to eye opening. There is a small amount of low amplitude 18-20 Hz beta activity seen maximally over the anterior head regions. Muscle and movement artifact was observed on a few occasions during the tracing. Hyperventilation was not performed. Photic stimulation at flash frequencies of 2-30 Hz produced a minimal occipital driving response. Muscle and movement artifact was observed on several occasions throughout the tracing. No epileptiform discharges were seen. IMPRESSION: This EEG is within normal limits for the patient's age. The EEG failed to reveal any focal, lateralized, or epileptiform abnormalities. Clinical correlation is recommended. MMODL / IJN: [id number] /
--- NOTE | 2017-12-10 01:04 | P.PN ---
Subjective Progress Note Date: 12/09/17 This patient is a 57-year-old male who is being evaluated for recent episode of syncope versus seizure. He underwent routine EEG today which was reviewed. EEG fails to reveal any active seizure focus. He is to continue on his current dose of Keppra 500 mg by mouth twice a day. His Keppra level was drawn but is still not back from the laboratory. The patient was seen by cardiology today for further evaluation of cardiac causes of syncope. It is felt his condition most likely was vasovagal in nature. Cardiology is ordered a 2-D echocardiogram and Doppler and we will await their results and recommendations. Patient anxious to go home. We did review the results of his EEG today with him in detail. He was happy to see that there was no active seizure focus. He does have a long history of underlying seizure disorder and should follow-up with his neurologist at [facility] soon after discharge. We will continue close neurological follow-up with the patient. His overall prognosis at this time remains guarded. Objective - Vital Signs Vital signs: Vital Signs Temp 97.4 F L 12/09/17 23:31 Pulse 73 12/09/17 23:31 Resp 18 12/09/17 23:31 BP 121/71 12/09/17 23:31 Pulse Ox 94 L 12/09/17 23:31 Intake & Output 12/09/17 12/09/17 12/10/17 06:59 18:59 06:59 Intake Total 900 1300 Balance 900 1300 Weight 105.9 kg Intake: IV 900 Sodium Chloride 0.9% 1, 900 000 ml @ 100 mls/hr IV . Q10H [facility] Rx#:[id number] Intake, IV Titration 400 Amount Sodium Chloride 0.9% 1, 400 000 ml @ 100 mls/hr IV . Q10H [facility] Rx#:[id number] Oral 900 Other: Voiding Method Toilet Toilet - Exam Physical examination: PHYSICAL EXAMINATION: Patient is resting comfortably in bed. VITAL SIGNS: Blood pressure is [133/84]. Heart rate is [74]. Respiration is [18] . Temperature is [98.4]. HEENT: Head is atraumatic, neck is supple, there were no carotid bruits. CHEST: Lungs are clear to auscultation and percussion. CARDIAC: S1, S2 normal rate and rhythm. There is no murmur. ABDOMEN: Soft and nontender. Bowel sounds are present. EXTREMITIES: There is no pedal edema. Peripheral pulses are present. Neurological examination: Patient has a nonfocal neurological examination today. - Labs CBC & Chem 7: 12/09/17 03:14 12/09/17 03:14 Labs: Abnormal Lab Results - Last 24 Hours (Table) 12/09/17 12/09/17 Range/Units 03:14 03:14 WBC 14.1 H (3.8-10.6) k/uL RBC 4.17 L (4.30-5.90) m/uL Hgb 12.9 L (13.0-17.5) gm/dL Hct 38.2 L (39.0-53.0) % Neutrophils # 11.0 H (1.3-7.7) k/uL Potassium 3.4 L (3.5-5.1) mmol/L Chloride 97 L (98-107) mmol/L Carbon Dioxide 33 H (22-30) mmol/L Assessment and Plan (1) Seizure disorder Current Visit: Yes Status: Acute Code(s): G40.909 - EPILEPSY, UNSP, NOT INTRACTABLE, WITHOUT STATUS EPILEPTICUS SNOMED Code(s): 897713681 (2) Vasovagal syncope Current Visit: Yes Status: Acute Code(s): R55 - SYNCOPE AND COLLAPSE SNOMED Code(s): 313536627 (3) Anxiety disorder Current Visit: Yes Status: Acute Code(s): F41.9 - ANXIETY DISORDER, UNSPECIFIED SNOMED Code(s): 604514882 (4) Unresponsive episode Current Visit: Yes Status: Acute Code(s): R41.89 - OTH SYMPTOMS AND SIGNS W COGNITIVE FUNCTIONS AND AWARENESS SNOMED Code(s): 660048661 Plan: This patient is a 57-year-old male being evaluated for recent syncopal episode and collapse. He underwent a routine EEG today which is reviewed and is within normal limits for his age. No evidence of any epileptiform discharges. Patient is being evaluated by cardiology as well and we are waiting their final recommendations. Patient is on Keppra monotherapy for seizure history. His Keppra level still is pending from the laboratory today. We reviewed the results of the EEG with the patient today and he was happy to know that it was normal. We will continue close neurological follow-up with the patient during this admission. His overall prognosis remains guarded.
[2017-12-10 08:09] VITALS: BP 106/72; PULSE 72; TEMP 97.6
[2017-12-10] MEDS: ASPIRIN 81 MG PO SCH (09:12)
[2017-12-10] MEDS: levETIRAcetam 500 MG TAB PO SCH (09:12)
[2017-12-10] MEDS: CHOLECALCIFEROL 1,000 UNIT TAB PO SCH (09:13)
[2017-12-10] MEDS: POTASSIUM CHLORIDE ER 10 MEQ TAB.ER.PRT PO SCH (09:13)
[2017-12-10] MEDS: LISINOPRIL 20 MG TAB PO SCH (09:13)
[2017-12-10 10:09] LABS: Basophils % (A) 0 %; Eosinophils # (A) 0.2 k/uL (0-0.7); Eosinophils % (A) 2 %; HCT 38.8 % (39.0-53.0); HGB 12.6 gm/dL (13.0-17.5); Lymphocytes # (A) 2.1 k/uL (1.0-4.8); Lymphocytes % (A) 21 %; MCH 30.4 pg (25.0-35.0); MCHC 32.5 g/dL (31.0-37.0); MCV 93.7 fL (80.0-100.0); Mean Platelet Volume 6.7; Monocytes # (A) 0.3 k/uL (0-1.0); Monocytes % (A) 3 %; Neutrophils # (A) 7.4 k/uL (1.3-7.7); Neutrophils % (A) 73 %; Platelet Count 336 k/uL (150-450); RBC 4.14 m/uL (4.30-5.90); WBC 10.1 k/uL (3.8-10.6)
[2017-12-10 10:21] LABS: Anion Gap 5 mmol/L; Blood Urea Nitrogen 16 mg/dL (9-20); Calcium 8.7 mg/dL (8.4-10.2); Carbon Dioxide 32 mmol/L (22-30); Chloride 101 mmol/L (98-107); Glucose 111 mg/dL (74-99); Potassium 4.1 mmol/L (3.5-5.1); Sodium 138 mmol/L (137-145)
--- NOTE | 2017-12-10 11:26 | P.DS ---
Providers Date of admission: 12/08/17 17:03 Expected date of discharge: 12/10/17 Attending physician: Jada Sepulveda DO Consults: 12/08/17 17:04 Consult Physician Urgent Consulting Provider: Rashel Pop Consult Reason/Comments: seizure v syncope Do you want consulting provider notified?: Yes Consult Physician Urgent Consulting Provider: Irvin Noriega Consult Reason/Comments: syncope v seizure Do you want consulting provider notified?: Yes Primary care physician: Physician Nonstaff Hospital Course: 57-year-old male presented to the emergency department following an unresponsive episode. Patient doesn't recall the event. He was buying a Sundae at an ice cream place when he started feeling dizzy and lightheaded and then all of a sudden his eyes rolled back and he fell backwards. He didn't hit his head on the bench. He was not sure how long he passed out for. He felt clammy and diaphoretic. He denied having any nausea or vomiting. No blurry or double vision. No focal weakness or numbness. No slurred speech. Patient has history of COPD and he continues to smoke occasionally and he stated that the heat and humidity have been taking a toll on him. There was questionable shaking during the event but his stated that it didn't look like his typical seizure. Patient was admitted, he was placed on tele. In emergency department he had a head CT scan and that was negative for any acute intracranial processes. On laboratory testing he did have some leukocytosis. His potassium level low. He does take potassium supplementation at home. His potassium was replaced. Patient was seen by neurology and cardiology services. He had an EEG that did not show any seizure activities. He also had an echocardiogram that was essentially normal. Telemetry did not reveal any alarming changes. He did not have any further episodes of dizziness or loss of consciousness or seizures while he was in the hospital. Patient will be discharged on a stable condition. He was instructed to follow-up with his primary care physician as well as his neurologist after discharge. Discharge diagnoses Syncope likely secondary to vasovagal event Plan - Discharge Summary New Discharge Prescriptions: New Acetaminophen Tab [Tylenol] 650 mg PO Q6HR PRN tab PRN Reason: Mild Pain Or Fever > 100.5 Continue Lisinopril 40 mg PO DAILY Hydrochlorothiazide [Hydrodiuril] 25 mg PO DAILY levETIRAcetam [Keppra] 500 mg PO Q12HR Cholecalciferol [Vitamin D3] 1,000 unit PO DAILY Atorvastatin [Lipitor] 20 mg PO HS Vit C/E/Zn/Coppr/Lutein/Zeaxan [Preservision Areds 2 Softgel] 1 cap PO DAILY Potassium Chloride [Klor-Con 10] 10 meq PO DAILY Aspirin [Adult Low Dose Aspirin EC] 81 mg PO DAILY Discharge Medication List Aspirin [Adult Low Dose Aspirin EC] 81 mg PO DAILY 12/08/17 [History] Atorvastatin [Lipitor] 20 mg PO HS 12/08/17 [History] Cholecalciferol [Vitamin D3] 1,000 unit PO DAILY 12/08/17 [History] Hydrochlorothiazide [Hydrodiuril] 25 mg PO DAILY 12/08/17 [History] Lisinopril 40 mg PO DAILY 12/08/17 [History] Potassium Chloride [Klor-Con 10] 10 meq PO DAILY 12/08/17 [History] Vit C/E/Zn/Coppr/Lutein/Zeaxan [Preservision Areds 2 Softgel] 1 cap PO DAILY [History] levETIRAcetam [Keppra] 500 mg PO Q12HR 12/08/17 [History] Acetaminophen Tab [Tylenol] 650 mg PO Q6HR PRN tab 12/10/17 [Rx] Follow up Appointment(s)/Referral(s): Nonstaff,Physician [Primary Care Provider] - 1-2 days Activity/Diet/Wound Care/Special Instructions: Pt's PCP is Dr. Driver out of [place]. Pt prefers to make his own appointment. Follow up with neurology.
== END 2017-12-10 13:27 | disposition home or self-care (01) ==
LOC: EC 15:03 → INTOOBSV 17:03 → 6SEL 17:03 → 4MS4W 12-09 21:43 → UNDODISIN 12-10 13:27
PROVIDERS: ADMIT Internal Medicine; ATTEND Internal Medicine
DX: R55 Syncope and collapse (principal); I11.0 Hypertensive heart disease with heart failure; I50.9 Heart failure, unspecified; D72.829 Elevated white blood cell count, unspecified; E78.5 Hyperlipidemia, unspecified; E87.6 Hypokalemia; I25.2 Old myocardial infarction; I25.10 Atherosclerotic heart disease of native coronary artery without angina pectoris; J44.9 Chronic obstructive pulmonary disease, unspecified; F41.9 Anxiety disorder, unspecified; G40.909 Epilepsy, unspecified, not intractable, without status epilepticus; Z79.82 Long term (current) use of aspirin; Z79.899 Other long term (current) drug therapy; Z83.3 Family history of diabetes mellitus; Z84.1 Family history of disorders of kidney and ureter; W19.XXXA Unspecified fall, initial encounter; Y92.833 Campsite as the place of occurrence of the external cause; F17.200 Nicotine dependence, unspecified, uncomplicated
CPT/HCPCS: 96361 ×3; 96360; 99285; 36415; 94760; 95816; 93005; 93306; 85379; 80053; 80048 ×2; 80177 ×2; 82550; 82553; 83735; 84100; 84484 ×2; 85025 ×3; 85610; 85730; 81003; 80306; 80320; 71046; 70450; G0378 ×3